=== PATIENT | female | born 1995 | race Caucasian/White ===

== ENCOUNTER 2023-11-13 10:48 | Emergency (ER) | payer BC ==
[~2023-11-13] VITALS: Ht 165.1 cm; Wt 70.0 kg
[2023-11-13 10:51] VITALS: O2SAT 100
[2023-11-13] MEDS ORDERED: SULF1TAB48 MT (11:27)
[2023-11-13 11:30] VITALS: BP 119/68; PULSE 79; RESP 16; TEMP 98
== END 2023-11-13 14:57 | disposition home or self-care (01) ==
LOC: ER 10:48
DX: L02.415 Cutaneous abscess of right lower limb (principal); F41.9 Anxiety disorder, unspecified; F31.9 Bipolar disorder, unspecified; Z90.49 Acquired absence of other specified parts of digestive tract
CPT/HCPCS: 99283